=== PATIENT | female | born 1965 | race African-American/Black ===

== ENCOUNTER 2016-07-13 17:45 | Emergency (ER) | payer OTHER ==
[~2016-07-13] VITALS: Ht 162.6 cm; Wt 105.2 kg
[2016-07-13 18:24] VITALS: BP 190/118
[2016-07-13] MEDS ORDERED: [UNRECOGNIZED DRUG - OTHER] PO (18:44)
[2016-07-13] MEDS ORDERED: ZESTORETIC 10-1 EACH PO (18:44)
[2016-07-13] MEDS ORDERED: METFORMIN HCL500 M3 PO (18:45)
[2016-07-13] MEDS ORDERED: DIFLUCAN200 M1 PO (18:45)
[2016-07-13] MEDS ORDERED: VITAMIN D250000 UNIT PO (18:46)
--- NOTE | 2016-07-13 18:51 | ED HAND/WRIST INJURY COMPLAINT ---
History of Present Illness General Chief Complaint: Laceration Procedure Stated Complaint: RIGHT INDEX FINGER LAC Source: patient Exam Limitations: no limitations Vital Signs & Intake/Output Vital Signs & Intake/Output Vital Signs Date Time Temp Pulse Resp B/P Pulse O2 O2 Flow FiO2 Ox Delivery Rate 07/13 1824 190/118 07/13 1806 98.2 80 17 173/114 98 Room Air Room Air Allergies Coded Allergies: NO KNOWN ALLERGIES (07/13/16) Reconcile Medications Ergocalciferol (Vitamin D2) (Vitamin D2) 50,000 UNIT CAPSULE 1 CAP PO QTUES SUPPLEMENT (Reported) Fluconazole (Diflucan) 200 MG TABLET 1 TAB PO ONCE A WEEK SKIN (Reported) Iron/FA#1/Vit C/B12/Zn/Dss/Suc (Feriva 21-7 Tablet) 75-1-175MG TABLET 1 TAB PO DAILY SUPPLEMENT (Reported) Lisinopril/Hydrochlorothiazide (Zestoretic 10-12.5 MG Tablet) 10 MG-12.5 MG TABLET 1 TAB PO DAILY BP (Reported) Metformin HCl 500 MG TABLET 1 TAB PO DAILY DM (Reported) Triage Note: PT TO TRIAGE WITH LAC TO RIGHT POINTER WHILE USING A KNIFE. BLEEDING CONTROLED Triage Nurses Notes Reviewed? yes HPI: 51-year-old female left hand dominant with complaints of right index finger laceration that occurred with a knife as she was opening up a package. Injury occurred prior to arrival, mild sharp pain, mild active bleeding, controlled with direct pressure. She does not know when her last tetanus injection was. (JAMES ROBERTSON) Past History Travel History Traveled to [place] past 21 day No Medical History Any Pertinent Medical History? see below for history Neurological: NONE EENT: NONE Cardiovascular: hypertension Respiratory: NONE Gastrointestinal: NONE Hepatic: NONE Renal: NONE Musculoskeletal: NONE Psychiatric: NONE Endocrine: NONE Blood Disorders: NONE Cancer(s): NONE NAIL CUTTER/Reproductive: NONE Surgical History Surgical History: non-contributory Psychosocial History What is your primary language Mauritian Tobacco Use: Never used Family History Hx Contributory? No (JAMES ROBERTSON) Review of Systems Review of Systems Constitutional: Reports: see HPI. EENTM: Reports: no symptoms. Respiratory: Reports: no symptoms. Cardiovascular: Reports: no symptoms. GI: Reports: no symptoms. Genitourinary: Reports: no symptoms. Musculoskeletal: Reports: no symptoms. Skin: Reports: see HPI. Neurological/Psychological: Reports: no symptoms. Hematologic/Endocrine: Reports: no symptoms. Immunologic/Allergic: Reports: no symptoms. All Other Systems: Reviewed and Negative (JAMES ROBERTSON) Physical Exam Physical Exam Hand Left: normal inspection Hand Right: 2nd finger Comments: Well-developed well-nourished no apparent distress. HEENT: Atraumatic, extraocular motion intact Neck: Supple, no lymphadenopathy Back: Nontender Respiratory: No respiratory distress Extremities: No edema, full range of motion Neuro: Alert and oriented x3 Psych: Mood affect normal, normal memory normal judgment. Skin: Warm and dry, no rash on exposed skin Right hand: 1.5 cm laceration to the right distal phalanx volar ulnar aspect, flap-type laceration. Neurovascularly intact, sensation motor intact, capillary refill less than 2 seconds, no active bleeding. (JAMES ROBERTSON) Progress Differential Diagnosis: abscess, cellulitis, contusion, compartment syndrome, dislocation, felon, fracture, gout, paronychia, septic arthritis, sprain, tenosynovitis Plan of Care: Current Medications Sig/Jean Marie Start time Last Medication Dose Stop Time Status Admin Tetanus/Diphtheria 0.5 ML ONCE ONE 07/13 1899 AC Toxoids Adsorbed 07/13 1900 (Decava) Comments: BP RECHECK 170/110 LUE , DONE BY MYSELF. After verbal consent was obtained the laceration area was anesthetized with lidocaine, 1 mL, right hand index finger It was prepped and draped in a sterile fashion with Betadine. The wound was copiously irrigated with normal saline. The wound was inspected and no foreign bodies or tendon lacerations were noted on exam and there is no functional deficit. There is no arterial bleeding. 5 -0 nylon simple interrupted sutures were placed 3 Sutures in total. Bacitracin and sterile dressing was applied. Distally the neurovascular status was intact postprocedure. The patient tolerated the procedure well without complications. Infection and risk of foreign body or tendon laceration was discussed with patient. Follow-up instructions and wound care was discussed. Tetanus vaccination was given dISCUSSED WITH PATIENT HYPERTENSION, SHE IS CURRENTLY ADJUSTING HER BLOOD PRESSURE MEDICATION AND START HER NEW BLOOD PRESSURE MEDICATION THIS MORNING. She has been seen regularly by her primary care doctor in the area where that is elevated and she has had workup for this as well. She has no complaints of headaches nausea vomiting blurry vision or visual changes. She can follow-up as outpatient with her doctor, she was recommended to have a blood pressure home monitoring device and record the findings. She is agreeable with this plan (JAMES ROBERTSON) Departure Departure Disposition: HOME OR SELF CARE Condition: Stable Clinical Impression Primary Impression: Laceration of finger, right Qualifiers: Encounter type: initial encounter Qualified Code: S61.219A - Laceration without foreign body of unspecified finger without damage to nail, initial encounter Secondary Impressions: Hypertensive urgency Referrals: CHERELLE TONY MD (PCP/Family) Additional Instructions: Follow-up in 7-10 days either with your doctor or return to the emergency room for wound check and removal of sutures/carmen Watch for signs of infection: Redness, swelling, pain, fever, discharge The possibility of a tendon laceration or foreign body exists. Please watch for signs of infection and return with any concerns Your blood pressure was elevated today, please obtain an [id number] blood pressure home monitoring device and report to your primary care doctor the readings over the next week or so. They may need to adjust your blood pressure medication. Departure Forms: Customer Survey General Discharge Information (JAMES ROBERTSON) PA/BUSINESS ANALYST [employer] Co-Sign Statement Statement: ED Attending supervision documentation- [] I saw and evaluated the patient. I have also reviewed all the pertinent lab results and diagnostic results. I agree with the findings and the plan of care as documented in the PA's/BUSINESS ANALYST [employer]'s documentation. x I have reviewed the ED Record and agree with the PA's/BUSINESS ANALYST [employer]'s documentation. [] Additions or exceptions (if any) to the PAs/BUSINESS ANALYST [employer]'s note and plan are summarized below: [] (NATALIO ROSS,ABELARDO)
== END 2016-07-13 18:56 ==
LOC: ERH 17:45
DX: S61.210A Laceration without foreign body of right index finger without damage to nail, initial encounter (principal); W26.0XXA Contact with knife, initial encounter
CPT/HCPCS: 90471; 90714